=== PATIENT | female | born 1985 | race Caucasian/White ===

== ENCOUNTER 2018-02-13 10:00 | Emergency (ER) | payer OTHER ==
[~2018-02-13] VITALS: Ht 157.5 cm; Wt 41.7 kg
[~2018-02-13 10:00] MED LIST: ANTIVERT25 MG PO; NOHOMEMEDICATIONS; ROBAXIN500 MG PO; TRAMADOL 50 MG50 MG PO; ZOFRAN ODT4 MG PO; ZOFRAN4 MG PO
[2018-02-13 10:36] LABS: HEMATOCRIT 39.6 % (37.0-47.0); HEMOGLOBIN 13.7 gm/dL (12.0-15.0); MCH 30.6 pg (26.0-34.0); MCHC 34.6 g/dL (28.0-37.0); MCV 88.5 fL (80.0-100.0); MPV 8.4 fl. (7.2-11.1); RBC 4.47 mil/uL (4.20-5.00); RDW-CV 13.4 % (10.5-14.5); WBC 10.2 thou/uL (4.0-11.0)
[2018-02-13 10:44] LABS: CALCIUM 9.3 mg/dL (8.5-10.1); CREATININE 0.7 mg/dL (0.6-1.3); POTASSIUM 3.4 mmol/L (3.5-5.1)
[2018-02-13 10:47] LABS: MONOTEST (MONOSPOT)* NEGATIVE (Negative)
[2018-02-13 10:48] LABS: ALBUMIN 3.6 g/dL (3.4-5.0); TOTAL PROTEIN 8.2 g/dL (6.4-8.2)
--- NOTE | 2018-02-13 15:10 | EKG ---
[place] [address] ELECTROCARDIOGRAM REPORT Name: ORA BECKMAN Room: [facility]#: [id number] Admission: 02/13/18 Attend Phys: Discharge: Date of : 81 Report #: [id number] THIS REPORT FOR: //name// [facility] ED Test Date: 2018-02-13 Test Time: 10:36:56 Pat Name: ORA GREENEDER Department: Room: Gender: F Welding Inspector: Gerard ALMARAZ : 1985 Requested By: Brad Muhammad Order Number: [id number] MD: John Esquivel Measurements Intervals [place] Rate: 102 P: 80 MD: 128 QRS: 91 QRSD: 90 T: 58 QT: 328 QTc: 428 Interpretive Statements Sinus tachycardia Consider right atrial enlargement Borderline right axis deviation Compared to ECG 02/12/2016 10:28:17 Sinus rhythm no longer present Ventricular premature complex(es) no longer present Electronically Signed On 02-13-2018 15:10:25 CDT by John Esquivel [email or web address] <ELECTRONICALLY SIGNED> By: John Esquivel MD, [facility] 02/13/18 1510 [id number] John Esquivel MD, [facility] /EPI
[2018-02-13 15:34] VITALS: BP 141/102
== END 2018-02-13 15:34 | disposition short-term general hospital (02) ==
LOC: M.ERS 10:00
PROVIDERS: Emergency Medicine Emergency Medical Services
DX: M25.48 Effusion, other site (principal); E28.2 Polycystic ovarian syndrome; Z88.5 Allergy status to narcotic agent; Z88.1 Allergy status to other antibiotic agents

== ENCOUNTER 2019-02-17 03:44 | Emergency (ER) | payer OTHER ==
[~2019-02-17] VITALS: Ht 157.5 cm; Wt 41.7 kg
[2019-02-17 04:38] LABS: HEMATOCRIT 38.3 % (37.0-47.0); HEMOGLOBIN 12.9 gm/dL (12.0-15.0); MCH 29.6 pg (26.0-34.0); MCHC 33.7 g/dL (28.0-37.0); MCV 87.8 fL (80.0-100.0); MPV 8.9 fl. (7.2-11.1); NUCLEATED RBCS 0 /100WBC; PLATELET COUNT* 133 thou/uL (150-400); RBC 4.37 mil/uL (4.20-5.00); RDW-CV 13.4 % (10.5-14.5); WBC 6.8 thou/uL (4.0-11.0)
[2019-02-17 04:57] LABS: ALBUMIN 3.8 g/dL (3.4-5.0); CALCIUM 8.7 mg/dL (8.5-10.1); CREATININE 0.8 mg/dL (0.6-1.3); TOTAL BILIRUBIN 0.5 mg/dL (<0.1-1.0); TOTAL PROTEIN 6.6 g/dL (6.4-8.2)
[2019-02-17] MEDS ORDERED: IBUPROFEN 800800 MG PO (05:10)
[2019-02-17 05:41] LABS: ABSOLUTE EOSINOPHILS 0.1 thou/uL (0.0-0.7); ABSOLUTE LYMPHOCYTES 0.6 thou/uL (0.8-5.3); ABSOLUTE MONOCYTES 0.2 thou/uL (0.0-1.2); ABSOLUTE NEUTROPHILS 5.9 thou/uL (1.6-8.1); PLATELET ESTIMATE DECREASED
[2019-02-17 05:42] LABS: ANISOCYTOSIS 1+; POIKILOCYTOSIS 1+
[2019-02-17] MEDS ORDERED: NORCO 5-325 TA1 EACH PO (05:59)
[2019-02-17] MEDS ORDERED: AUGMENTIN600 MG/5 M PO (05:59)
[2019-02-17 06:35] VITALS: BP 112/74
== END 2019-02-17 06:39 | disposition home or self-care (01) ==
LOC: M.ERS 03:44
PROVIDERS: Personal Emergency Response Attendant
DX: J03.90 Acute tonsillitis, unspecified (principal); Z88.1 Allergy status to other antibiotic agents; Z88.5 Allergy status to narcotic agent

== ENCOUNTER 2019-03-23 09:05 | Emergency (ER) | payer OTHER ==
[~2019-03-23] VITALS: Ht 157.5 cm; Wt 42.2 kg
[~2019-03-23 09:05] MED LIST changes: +AUGMENTIN600 MG/5 M PO; +IBUPROFEN 800800 MG PO; +NORCO 5-325 TA1 EACH PO
[2019-03-23 09:23] LABS: URINE BILIRUBIN NEGATIVE (Negative); URINE BLOOD TRACE (Negative); URINE CLARITY SL CLOUDY; URINE COLOR YELLOW; URINE GLUCOSE-RANDOM NEGATIVE (Negative); URINE KETONES NEGATIVE (Negative); URINE NITRITE-REFLEX NEGATIVE (Negative); URINE PROTEIN 1+ (Negative); URINE UROBILINOGEN 0.2 E.U./dl (0.2-1.0)
[2019-03-23 09:24] LABS: URINE LEUKOCYTES-REFLEX 3+ (Negative)
[2019-03-23 09:28] LABS: SQUAMOUS >10 Many /LPF (0-3); WBC CLUMPS Few (None Seen)
[2019-03-23 09:29] LABS: URINE WBC-REFLEX >25 Many /HPF (0-5)
[2019-03-23 09:30] LABS: BACTERIA-REFLEX >30 Many /HPF (None Seen); CASTS None Seen /LPF (None Seen); MUCUS 0-3 Light strn/LPF (None Seen); URINE RBC 0-2 Rare /HPF (0-2)
[2019-03-23 09:31] LABS: CRYSTALS None Seen /LPF (None Seen)
[2019-03-23 09:39] LABS: ABSOLUTE EOSINOPHILS 0.1 thou/uL (0.0-0.7); ABSOLUTE LYMPHOCYTES 0.8 thou/uL (0.8-5.3); ABSOLUTE MONOCYTES 0.3 thou/uL (0.0-1.2); ABSOLUTE NEUTROPHILS 6.1 thou/uL (1.6-8.1); BASOPHILS 0.3 %; EOSINOPHILS 1.4 %; HEMATOCRIT 42.2 % (37.0-47.0); HEMOGLOBIN 14.2 gm/dL (12.0-15.0); LYMPHOCYTES 11.3 %; MCH 29.6 pg (26.0-34.0); MCHC 33.6 g/dL (28.0-37.0); MCV 88.1 fL (80.0-100.0); MONOCYTES 4.2 %; NUCLEATED RBCS 0 /100WBC; PLATELET COUNT* 154 thou/uL (150-400); POLYS 82.8 %; RBC 4.79 mil/uL (4.20-5.00); RDW-CV 13.5 % (10.5-14.5); WBC 7.3 thou/uL (4.0-11.0)
[2019-03-23 09:56] LABS: CALCIUM 8.8 mg/dL (8.5-10.1); CREATININE 0.7 mg/dL (0.6-1.3); POTASSIUM 3.7 mmol/L (3.5-5.1)
[2019-03-23 10:00] LABS: TOTAL BILIRUBIN 0.5 mg/dL (<0.1-1.0); TOTAL PROTEIN 7.4 g/dL (6.4-8.2)
[2019-03-23] MEDS ORDERED: KEFLEX500 M1 PO (12:06)
[2019-03-23 12:30] VITALS: BP 119/82
== END 2019-03-23 12:33 | disposition home or self-care (01) ==
LOC: M.ERS 09:05
PROVIDERS: Family Medicine
DX: O23.41 Unspecified infection of urinary tract in pregnancy, first trimester (principal); O21.8 Other vomiting complicating pregnancy; Z3A.01 Less than 8 weeks gestation of pregnancy